=== PATIENT | female | born 1990 | race Two or more races ===

== ENCOUNTER 2022-03-17 00:45 | Emergency (ER) | payer BC ==
[~2022-03-17] VITALS: Ht 167.6 cm; Wt 100.0 kg
[2022-03-17 01:15] LABS: Mean Corpuscular Volume 81.9 fL (80.0-100.0); Red Cell Distribution Width 15.7 % (11.8-14.3)
[2022-03-17 01:17] LABS: Hematocrit 26.7 % (36.0-46.0); Hemoglobin 8.5 g/dL (12.2-16.2); Mean Corpuscular Hemoglobin 26.1 pg (28.0-32.0); Mean Corpuscular Hgb Conc. 31.9 g/dL (32.0-36.0); Red Blood Cells 3.26 10^6/uL (4.0-5.20); White Blood Cell 29.3 10^3/uL (4.4-10.8)
[2022-03-17 01:20] LABS: Basophils % (manual) 0 (0.0-2.0); Blast Cells 0; Eosinophils % (manual) 0 (0-7); Metamyelocytes % 0; Myelocytes % 0; Promyelocytes % 0; Reactive Lymphocytes 0
[2022-03-17 01:22] LABS: INR 2.02 (0.9-1.15); Partial Thromboplastin Time 65.5 sec (24.6-33.4)
[2022-03-17 01:25] VITALS: BP 108/50
[2022-03-17 01:25] LABS: Albumin 1.5 g/dL (3.4-5.0); BUN/Creatinine Ratio 17.5; Calcium 6.7 mg/dL (8.5-10.1)
[2022-03-17] MEDS: ONDANSETRON HCL 4 MG/2 ML VIAL IV ONE ×2 (01:25→01:45)
[2022-03-17] MEDS: fentaNYL CITRATE 100 MCG/2 ML VL IV ONE (01:25)
[2022-03-17 01:26] LABS: Potassium 3.1 mmol/L (3.5-5.1)
[2022-03-17] MEDS ORDERED: ONDANSETRON HCL 4 MG/2 ML VIAL ONE (01:26)
[2022-03-17] MEDS ORDERED: fentaNYL CITRATE 100 MCG/2 ML VL ONE (01:27)
[2022-03-17 01:28] LABS: Bilirubin, Total 0.5 mg/dL (0.2-1.0); Total Protein 4.7 g/dL (6.4-8.2)
[2022-03-17 02:41] LABS: Band Neutrophils % (manual) 8; Lymphocytes % (manual) 12 (10.0-50.0); Monocytes % (manual) 2 (0-12)
== END 2022-03-17 01:54 | disposition short-term general hospital (02) ==
LOC: ER 00:45 → EDBD 00:45 → ER 01:54
DX: O99.413 Diseases of the circulatory system complicating pregnancy, third trimester (principal); S09.90XA Unspecified injury of head, initial encounter; R10.30 Lower abdominal pain, unspecified; Z3A.36 36 weeks gestation of pregnancy; V89.2XXA Person injured in unspecified motor-vehicle accident, traffic, initial encounter; Y93.89 Activity, other specified; Y92.89 Other specified places as the place of occurrence of the external cause; Y99.8 Other external cause status
CPT/HCPCS: 36415; 76805; 76818; 80053; 84550; 85007; 85027; 85610; 85730; 86850; 86900; 86901; 93005; 96374; 96375; 99285; J2405; J3010